=== PATIENT | male | born 1950 | race African-American/Black ===

== ENCOUNTER 2020-04-26 20:13 | Inpatient (IN) | payer MEDICARE, OTHER ==
[~2020-04-26] VITALS: Ht 172.7 cm; Wt 82.2 kg
[2020-04-26 21:27] LABS: BASOPHILS % 0.6 % (0.0-2.0); EOSINOPHILS % 1.1 % (0.0-5.0); HEMATOCRIT. 24.5 % (42.0-52.0); HEMOGLOBIN. 7.2 g/dL (14.0-18.0); LYMPHOCYTES % 11.3 % (20.0-50.0); MEAN CORPUSCULAR HEMOGLOBIN 16.3 pg (28.0-32.0); MEAN CORPUSCULAR VOLUME 54.9 fL (80.0-94.0); MEAN PLATELET VOLUME 8.3 fl (7.4-10.4); MONOCYTES % 7.7 % (2.0-8.0); NEUTROPHILS % 79.3 % (40.0-76.0); PLATELET 589 x1000/uL (130-400); RED BLOOD CELL COUNT 4.45 mill/uL (4.7-6.1); RED CELL DISTRIBUTION WIDTH 21.5 % (11.6-14.6)
[2020-04-26 21:33] LABS: CHLORIDE 111 mEq/L (98-107)
[2020-04-26 21:34] LABS: INR 1.1; PROTHROMBIN TIME 11.9 sec (9.6-11.0)
[2020-04-26 21:46] LABS: PLATELET ESTIMATE INCREASED
[2020-04-26] MEDS ORDERED: SODIUM CHLORIDE 0.9% 1,000 ML IV ONE (22:26)
[2020-04-26] MEDS ORDERED: PANTOPRAZOLE SODIUM 40 MG/VIAL IV ONE (22:30)
[2020-04-27] MEDS ORDERED: IOHEXOL-300 100 ML BOTTLE ONE (03:31)
[2020-04-27 07:49] LABS: CLARITY URINE CLOUDY (CLEAR); COLOR URINE DARK YELLOW (YELLOW); KETONES URINE NEGATIVE (NEGATIVE); LEUKOCYTE ESTERASE URINE TRACE (NEGATIVE); NITRITE URINE NEGATIVE (NEGATIVE); OCCULT BLOOD URINE NEGATIVE (NEGATIVE); PROTEIN URINE TRACE (NEGATIVE); SPECIFIC GRAVITY URINE 1.053 (1.005-1.030)
[2020-04-27 08:30] VITALS: BP 124/82
[2020-04-27 09:25] VITALS: BP 124/84
[2020-04-27] MEDS ORDERED: ONDANSETRON HCL 4MG/2ML INJ IV PRN (10:45)
[2020-04-27 12:00] VITALS: BP 130/79
[2020-04-27] MEDS: DEXT 5%/0.45% NACL 1000ML 1,000 ML IV SCH (13:15)
[2020-04-27] MEDS ORDERED: LEVOFLOXACIN 250MG PREMIX 50 ML IV SCH (14:30)
[2020-04-27 16:00] VITALS: BP 108/79
[2020-04-27] MEDS: PANTOPRAZOLE SODIUM 40 MG/VIAL IV SCH (16:35)
[2020-04-27 20:00] VITALS: BP 122/79
[2020-04-27] MEDS: ACETAMINOPHEN 325MG TABLET PO PRN (21:39)
[2020-04-28] VITALS (8 sets, daily range): BP systolic 107–134; BP diastolic 56–79
[2020-04-28] MEDS: DEXT 5%/0.45% NACL 1000ML 1,000 ML IV SCH (02:18)
[2020-04-28 06:32] LABS: CHLORIDE 109 mEq/L (98-107)
[2020-04-28 06:44] LABS: TOTAL IRON BINDING CAPACITY 250 ug/dL (250-450)
[2020-04-28 06:52] LABS: FERRITIN 32 ng/mL (22-322)
[2020-04-28 06:57] LABS: BASOPHILS % 0.9 % (0.0-2.0); EOSINOPHILS % 0.7 % (0.0-5.0); HEMATOCRIT. 23.1 % (42.0-52.0); LYMPHOCYTES % 13.6 % (20.0-50.0); MEAN CORPUSCULAR HEMOGLOBIN 16.1 pg (28.0-32.0); MEAN CORPUSCULAR VOLUME 55.6 fL (80.0-94.0); MEAN PLATELET VOLUME 8.5 fl (7.4-10.4); MONOCYTES % 9.5 % (2.0-8.0); NEUTROPHILS % 75.3 % (40.0-76.0); PLATELET 551 x1000/uL (130-400); RED BLOOD CELL COUNT 4.15 mill/uL (4.7-6.1); RED CELL DISTRIBUTION WIDTH 21.7 % (11.6-14.6)
[2020-04-28 07:04] LABS: CARCINO EMBRYONIC ANTIGEN < 0.5 ng/ml
[2020-04-28 07:11] LABS: HEMOGLOBIN. 6.7 g/dL (14.0-18.0)
[2020-04-28] MEDS: PANTOPRAZOLE SODIUM 40 MG/VIAL IV SCH ×2 (08:39→17:41)
[2020-04-28] MEDS ORDERED: CEFTRIAXONE 1 G PREMIX 50 ML IV SCH (11:45)
[2020-04-28 12:05] LABS: *BARBITURATES SCREEN URINE NEGATIVE (NEGATIVE)
[2020-04-28 12:06] LABS: *AMPHETAMINES SCREEN URINE NEGATIVE (NEGATIVE); *BENZODIAZEPINES SCREEN URINE NEGATIVE (NEGATIVE); *COCAINE SCREEN URINE NEGATIVE (NEGATIVE); METHADONE URINE SCREEN NEGATIVE (NEGATIVE); OPIATES URINE SCREEN NEGATIVE (NEGATIVE); PHENCYCLIDINE URINE SCREEN NEGATIVE (NEGATIVE)
[2020-04-28 12:07] LABS: CANNABINOID URINE SCREEN NEGATIVE (NEGATIVE)
[2020-04-28] MEDS: AZITHROMYCIN 250 MG TABLET PO SCH (12:16)
[2020-04-28] MEDS ORDERED: LIDOCAINE HCL 1% 20ML VIAL (Pyxis) INJ ONE (13:43)
[2020-04-28] MEDS: DOCUSATE SODIUM 250MG CAPSULE PO SCH (15:28)
[2020-04-28] MEDS: CEFTRIAXONE 1,000 MG in DEXTROSE 5% WATER 50 ML IV SCH (15:28)
[2020-04-28] MEDS: IRON SUCROSE COMPLEX 100 MG/5 ML ML IV SCH (15:28)
[2020-04-28] MEDS ORDERED: CHLORPROMAZINE HCL 25MG/1ML AMP IM PRN (22:00)
[2020-04-29] VITALS (15 sets, daily range): BP systolic 119–137; BP diastolic 67–85
[2020-04-29 05:22] LABS: CHLORIDE 111 mEq/L (98-107)
[2020-04-29 05:43] LABS: BASOPHILS % 0.4 % (0.0-2.0); EOSINOPHILS % 1.3 % (0.0-5.0); LYMPHOCYTES % 10.6 % (20.0-50.0); MEAN CORPUSCULAR HEMOGLOBIN 16.9 pg (28.0-32.0); MEAN CORPUSCULAR VOLUME 57.1 fL (80.0-94.0); MEAN PLATELET VOLUME 8.3 fl (7.4-10.4); MONOCYTES % 8.8 % (2.0-8.0); NEUTROPHILS % 78.9 % (40.0-76.0); PLATELET 457 x1000/uL (130-400); RED BLOOD CELL COUNT 3.86 mill/uL (4.7-6.1); RED CELL DISTRIBUTION WIDTH 23.7 % (11.6-14.6)
[2020-04-29] MEDS: AZITHROMYCIN 250 MG TABLET PO SCH (08:19)
[2020-04-29] MEDS: PANTOPRAZOLE SODIUM 40 MG/VIAL IV SCH ×2 (08:19→17:11)
[2020-04-29] MEDS: DOCUSATE SODIUM 250MG CAPSULE PO SCH ×2 (08:20→17:11)
[2020-04-29 08:38] LABS: HEMOGLOBIN. 6.5 g/dL (14.0-18.0)
[2020-04-29] MEDS: CEFTRIAXONE 1,000 MG in DEXTROSE 5% WATER 50 ML IV SCH (13:16)
[2020-04-29] MEDS: IRON SUCROSE COMPLEX 100 MG/5 ML ML IV SCH (14:00)
[2020-04-30] VITALS (8 sets, daily range): BP systolic 111–149; BP diastolic 62–89
[2020-04-30 01:31] LABS: HEMATOCRIT 26.9 % (42.0-52.0); HEMOGLOBIN 8.2 g/dL (14.0-18.0)
[2020-04-30 08:38] LABS: BASOPHILS % 1.1 % (0.0-2.0); EOSINOPHILS % 0.3 % (0.0-5.0); HEMATOCRIT. 29.8 % (42.0-52.0); HEMOGLOBIN. 9.1 g/dL (14.0-18.0); MEAN CORPUSCULAR HEMOGLOBIN 18.6 pg (28.0-32.0); MEAN CORPUSCULAR VOLUME 60.9 fL (80.0-94.0); MEAN PLATELET VOLUME 8.2 fl (7.4-10.4); MONOCYTES % 6.7 % (2.0-8.0); NEUTROPHILS % 81.9 % (40.0-76.0); PLATELET 384 x1000/uL (130-400); RED BLOOD CELL COUNT 4.89 mill/uL (4.7-6.1); RED CELL DISTRIBUTION WIDTH 26.9 % (11.6-14.6)
[2020-04-30 08:54] LABS: CHLORIDE 112 mEq/L (98-107)
[2020-04-30] MEDS: PANTOPRAZOLE SODIUM 40 MG/VIAL IV SCH ×2 (09:06→17:07)
[2020-04-30] MEDS: DOCUSATE SODIUM 250MG CAPSULE PO SCH ×3 (09:06→17:07)
[2020-04-30] MEDS: AZITHROMYCIN 250 MG TABLET PO SCH (09:06)
[2020-04-30] MEDS ORDERED: OMEP20CA14 MT (12:31)
[2020-04-30] MEDS: CEFTRIAXONE 1,000 MG in DEXTROSE 5% WATER 50 ML IV SCH (14:21)
[2020-04-30] MEDS: IRON SUCROSE COMPLEX 100 MG/5 ML ML IV SCH (16:44)
[2020-04-30] MEDS: ACETAMINOPHEN 325MG TABLET PO PRN (20:31)
[2020-05-01 04:00] VITALS: BP 118/71
[2020-05-01 08:00] VITALS: BP 148/91
[2020-05-01] MEDS: DOCUSATE SODIUM 250MG CAPSULE PO SCH (08:32)
[2020-05-01] MEDS: PANTOPRAZOLE SODIUM 40 MG/VIAL IV SCH (08:32)
[2020-05-01] MEDS: AZITHROMYCIN 250 MG TABLET PO SCH (08:32)
[2020-05-01 10:30] VITALS: BP 148/91
== END 2020-05-01 13:05 | disposition home or self-care (01) | DRG 137 ==
LOC: ER 20:13 → MICUSO 23:59 → UNDOADMIN 23:59 → MICUSO 04-27 02:34 → ENRESERV 04-27 03:39 → EDBEDREQSVC 04-27 05:19 → EDBEDREQTM 04-27 05:19 → MICUSO 04-27 06:24 → 7WST 04-27 06:24 → UNDODISIN 05-01 13:05
PROVIDERS: ADMIT Internal Medicine; ATTEND Internal Medicine
PROC: 30233N1 Transfusion of Nonautologous Red Blood Cells into Peripheral Vein, Percutaneous Approach (ICD-10-PCS; principal; 2020-04-28)
PROC: 05HY33Z Insertion of Infusion Device into Upper Vein, Percutaneous Approach (ICD-10-PCS; 2020-04-28)
PROC: B54MZZA Ultrasonography of Right Upper Extremity Veins, Guidance (ICD-10-PCS; 2020-04-28)
DX: U07.1 COVID-19 (principal); E43 Unspecified severe protein-calorie malnutrition; D50.9 Iron deficiency anemia, unspecified; E87.8 Other disorders of electrolyte and fluid balance, not elsewhere classified; I10 Essential (primary) hypertension; I25.10 Atherosclerotic heart disease of native coronary artery without angina pectoris; K76.9 Liver disease, unspecified; D49.0 Neoplasm of unspecified behavior of digestive system; C78.7 Secondary malignant neoplasm of liver and intrahepatic bile duct; J20.8 Acute bronchitis due to other specified organisms; R82.81 Pyuria; R79.89 Other specified abnormal findings of blood chemistry; K52.9 Noninfective gastroenteritis and colitis, unspecified; Z59.0 Homelessness; G89.3 Neoplasm related pain (acute) (chronic); K92.1 Melena
CPT/HCPCS: 36415; 71045; 74177; 76937; 80048; 80053; 80305; 81003; 82105; 82270; 82378; 82728; 83540; 83550; 83880; 84484; 85014; 85018; 85025; 86850; 86870; 86900; 86920; 87635; 93005; 96374; 99285; C1725; C9113; J0696; J1956; J3230; J3490; J7030; J7060; P9016; Q9967